=== PATIENT | male | born 1950 | race Caucasian/White ===

== ENCOUNTER 2020-11-22 14:53 | Emergency (ER) | payer OTHER ==
[2020-11-22 16:17] LABS: HEMOGLOBIN 14.4 gm/dl (14.0-17.5); RED BLOOD COUNT 4.84 M/UL (4.20-5.50); WHITE BLOOD COUNT 5.1 K/UL (4.5-11.0)
[2020-11-22 16:46] LABS: BUN/CREATININE RATIO 29 (0-10)
== END 2020-11-22 19:50 | disposition home or self-care (01) ==
LOC: ER1 14:53
PROVIDERS: Family Medicine
DX: R05 Cough (principal); Z88.8 Allergy status to other drugs, medicaments and biological substances; Z20.822 Contact with and (suspected) exposure to COVID-19
CPT/HCPCS: 36415; 71045; 80053; 82550; 82553; 83874; 84484; 85025; 93005; 99284; U0002

== ENCOUNTER 2022-07-17 22:49 | Emergency (ER) | payer OTHER | END 2022-07-18 03:22 | disposition home or self-care (01) | LOC: ER1 22:49 | DX: Z43.1 Encounter for attention to gastrostomy (principal) | CPT/HCPCS: 43762; 74018; 99283; Q9963 ==